=== PATIENT | male | born 1950 | race Caucasian/White ===

== ENCOUNTER 2020-09-13 08:56 | Emergency (ER) | payer MEDICARE, BC ==
[~2020-09-13] VITALS: Ht 170.2 cm; Wt 93.2 kg
[~2020-09-13 08:56] MED LIST: ADVIL 200MG TA200 MG PO; ATIVAN 0.50.5 MG/TAB PO; ATORVASTATIN PO; CRESTOR PO; CRESTOR20 MG PO; CYMBALTA30 MG PO; FORTAMET500 MG PO; GLUCOPHAGE1000 MG PO; LISINOPRIL5 MG PO; MELATONIN1 M1 PO; PERCOCET 325 MG1 TA2 PO; PROZAC40 MG PO; TYLENOL PM EXTR1 TA1 PO; TYLENOL PM PO; ULTRAM 50MG TAB50 MG PO; ULTRAM50 MG PO; ZITHROMAX Z PA250 MG PO
[2020-09-13 09:48] LABS: BASO % 0.2 % (0.0-2.0); GRAN # 6.8 (1.4-6.5); GRAN % 80.7 % (42.2-75.2); HEMATOCRIT 41.8 % (42.0-52.0); HEMOGLOBIN 14.7 g/dl (13.5-18.0); LYMPH # 0.9 (1.2-3.4); MEAN CELL VOLUME 85 fl (80.0-100.0); MEAN CORPUSCULAR HEMOGLOBIN 30 pg (27.0-31.0); MEAN CORPUSCULAR HGB CONC 35 g/dl (33.0-37.0); MEAN PLATELET VOLUME 10.2 fl (7.4-10.4); MONO # 0.6 (0.1-0.6); MONO % 7.5 % (1.7-9.3); PLATELET COUNT 176 K/mm3 (130-400); RED BLOOD COUNT 4.94 M/mm3 (4.20-5.60)
[2020-09-13 10:59] LABS: ALANINE AMINOTRANSFERASE 53 U/L (4-49); ALBUMIN 3.8 gm/dL (3.5-5.0); ALKALINE PHOSPHATASE 68 U/L (50-136); ANION GAP 11 mmol/L (7-16); AST,SGOT 84 U/L (15-37); BILIRUBIN,TOTAL 0.6 mg/dL (0.0-1.0); BLOOD UREA NITROGEN 24 mg/dL (9-20); CALCIUM 8.8 mg/dL (8.4-10.2); CARBON DIOXIDE 22 mmol/L (22-30); CHLORIDE 96 mmol/L (98-107); CREATININE, serum 1.05 (0.66-1.25); GLUCOSE 232 mg/dL (74-106); SODIUM 130 mmol/L (137-145); TOTAL PROTEIN 7.5 gm/dL (6.4-8.2)
[2020-09-13 11:10] LABS: C-REACTIVE PROTEIN 14.7 mg/dL (0.0-0.9); TROPONIN-I < 0.012 ng/mL (0.000-0.035)
[2020-09-13 11:35] VITALS: BP 117/58; PULSE 65; TEMP 97.4
[2020-09-13] MEDS ORDERED: REGLAN 5MG T5 MG/TAB PO (12:09)
== END 2020-09-13 11:40 | disposition home or self-care (01) ==
LOC: COL.ER 08:56
PROVIDERS: Emergency Medicine
DX: U07.1 COVID-19 (principal); E87.1 Hypo-osmolality and hyponatremia; Z79.84 Long term (current) use of oral hypoglycemic drugs
CPT/HCPCS: J1885; J7030

== ENCOUNTER 2020-09-24 12:57 | Observation (INO) | payer MEDICARE, BC ==
[~2020-09-24] VITALS: Wt 65.7 kg
[~2020-09-24 12:57] MED LIST changes: +REGLAN 5MG T5 MG/TAB PO
[2020-09-24 14:17] LABS: BASO # 0.1 (0.0-0.2); BASO % 0.4 % (0.0-2.0); EOS % 0.2 % (0-4.0); GRAN # 8.9 (1.4-6.5); GRAN % 75.3 % (42.2-75.2); HEMATOCRIT 47.6 % (42.0-52.0); HEMOGLOBIN 15.9 g/dl (13.5-18.0); LYMPH # 1.5 (1.2-3.4); LYMPH % 12.7 % (20.0-51.0); MEAN CELL VOLUME 89 fl (80.0-100.0); MEAN CORPUSCULAR HEMOGLOBIN 30 pg (27.0-31.0); MEAN CORPUSCULAR HGB CONC 33 g/dl (33.0-37.0); MONO # 1.3 (0.1-0.6); MONO % 10.6 % (1.7-9.3); PLATELET COUNT 442 K/mm3 (130-400); RED BLOOD COUNT 5.37 M/mm3 (4.20-5.60)
[2020-09-24 14:34] LABS: ALANINE AMINOTRANSFERASE 74 U/L (4-49); ALBUMIN 4.2 gm/dL (3.5-5.0); ALKALINE PHOSPHATASE 102 U/L (50-136); ANION GAP 13 mmol/L (7-16); AST,SGOT 51 U/L (15-37); BILIRUBIN,TOTAL 0.8 mg/dL (0.0-1.0); BLOOD UREA NITROGEN 44 mg/dL (9-20); CALCIUM 9.9 mg/dL (8.4-10.2); CARBON DIOXIDE 23 mmol/L (22-30); CHLORIDE 101 mmol/L (98-107); CREATININE, serum 1.35 (0.66-1.25); GLUCOSE 336 mg/dL (74-106); POTASSIUM 4.5 mmol/L (3.4-5.0); SODIUM 136 mmol/L (137-145); TOTAL PROTEIN 8.6 gm/dL (6.4-8.2)
[2020-09-24 14:40] LABS: TROPONIN-I < 0.012 ng/mL (0.000-0.035)
[2020-09-24 15:23] LABS: COLLECTION METHOD CLEAN CATCH
[2020-09-24 15:34] LABS: MUCOUS Present /lpf; PH 5 (5-8); SQUAMOUS EPITHELIAL 0-2 /hpf; URINE APPEARANCE Clear; URINE BACTERIA None Seen /hpf; URINE BILIRUBIN Negative (NEGATIVE); URINE BLOOD 1+ (NEGATIVE); URINE COLOR Yellow; URINE GLUCOSE 3+ (NEGATIVE); URINE KETONE Trace (NEGATIVE); URINE LEUKOCYTE ESTERASE Negative (NEGATIVE); URINE NITRATE Negative (NEGATIVE); URINE PROTEIN(semi-quant) 2+ (NEGATIVE); URINE RBC 0-2 /hpf; URINE UROBILINOGEN Negative (NEGATIVE)
[2020-09-24] MEDS ORDERED: PROZAC40 MG PO (17:28)
[2020-09-24 20:39] VITALS: BP 151/80; PULSE 130; TEMP 98.3
[2020-09-25 00:42] VITALS: BP 109/86; PULSE 104; TEMP 98.1
[2020-09-25 04:14] VITALS: BP 120/60; PULSE 61; TEMP 97.6
--- NOTE | 2020-09-25 06:28 | NUR ---
spoke to and got information r/t mri today. she relates he has not been dx with parkinsons, trmors are new onset.
--- NOTE | 2020-09-25 06:36 | NUR ---
THIS PT HAD A DIFFICULT START TO THE NIGHT. HE WAS VERY CONFUSED, PT STILL DID NOT UNDERSTAND WHERE HE WAS AT. HE HAS HAD SEVERAL BOUTS OF INCONTINENCE, BUT STILL THINKS HE NEEDS TO USE THE BATHROOM. THIS PATIENT WILL REQUIRE A LOT OF ATTENTION. BED ALARM IS ON, FALL PRECAUTIONS IN PLACE. PT IS SUPPOSED TO HAVE A BRAIN MRI TODAY, BUT MAY NEED TO CONSIDER SEDATION FOR THIS. WILL ENDORSE TO DAY SHIFT RN.
[2020-09-25 06:53] LABS: BASO % 0.4 % (0.0-2.0); EOS % 0.3 % (0-4.0); GRAN % 69.6 % (42.2-75.2); HEMATOCRIT 44.3 % (42.0-52.0); HEMOGLOBIN 14.7 g/dl (13.5-18.0); LYMPH # 1.9 (1.2-3.4); LYMPH % 19.2 % (20.0-51.0); MEAN CELL VOLUME 90 fl (80.0-100.0); MEAN CORPUSCULAR HEMOGLOBIN 30 pg (27.0-31.0); MEAN CORPUSCULAR HGB CONC 33 g/dl (33.0-37.0); MEAN PLATELET VOLUME 9.7 fl (7.4-10.4); RED BLOOD COUNT 4.94 M/mm3 (4.20-5.60); REDCELL DISTRIBUTION WIDTH-CV 12.1 % (11.5-14.5)
[2020-09-25 07:07] LABS: ALANINE AMINOTRANSFERASE 59 U/L (4-49); ALBUMIN 3.8 gm/dL (3.5-5.0); ALKALINE PHOSPHATASE 86 U/L (50-136); ANION GAP 10 mmol/L (7-16); AST,SGOT 46 U/L (15-37); BILIRUBIN,TOTAL 0.9 mg/dL (0.0-1.0); BLOOD UREA NITROGEN 42 mg/dL (9-20); CALCIUM 9.3 mg/dL (8.4-10.2); CARBON DIOXIDE 26 mmol/L (22-30); CHLORIDE 100 mmol/L (98-107); CREATININE, serum 1.17 (0.66-1.25); GLUCOSE 208 mg/dL (74-106); POTASSIUM 4.1 mmol/L (3.4-5.0); SODIUM 136 mmol/L (137-145); TOTAL PROTEIN 7.8 gm/dL (6.4-8.2)
[2020-09-25 07:08] LABS: PLATELET COUNT 336 K/mm3 (130-400)
[2020-09-25 07:19] LABS: TROPONIN-I < 0.012 ng/mL (0.000-0.035)
--- NOTE | 2020-09-25 07:29 | NUR ---
Pt assessment complete. Pt is assisted to the BSC with 1 assist. Pt is oriented to person and date just unsure where he is. Pt asking if we know what is the matter with him. Denies any pain. IV to RAC leaking, fluids disconnected. Will attempt new IV. No needs at this time. Call light and bed alarm in place.
[2020-09-25 08:01] VITALS: BP 140/69; PULSE 79; TEMP 97.8
--- NOTE | 2020-09-25 09:37 | NUR ---
Maryse called for update,
[2020-09-25 12:14] VITALS: BP 126/61; PULSE 84; TEMP 97.3
--- NOTE | 2020-09-25 15:11 | NUR ---
SW met with the patient to discuss discharge plan. The patient lives in [place] with his , Maryse (ph#[phone]), and family members. He states that there are ten of them in the home. He reports independence with ADLs and does not have any DME. The patient's PCP is Dr. Iwona Solis and he receives his medications from [facility]. He reports no difficulties obtaining his meds. The patient does not have a DPOA-HC in EMR, but he states that he thinks he has one completed and that his is his DPOA-HC. The patient plans to return home with his family upon discharge. PT/OT have been ordered. SW attempted to contact the patient's , Maryse, to review d/c plan. SW left her a voicemail. SW to continue to follow.
[2020-09-25 15:55] VITALS: BP 130/64; PULSE 76; TEMP 97.6
--- NOTE | 2020-09-25 18:34 | NUR ---
Pt was alert, oriented and pleasant this afternoon. Ambulated with SBA. No needs at this time. Bed alarm in place.
--- NOTE | 2020-09-25 20:30 | NUR ---
Initial shift assessment done- denies pain, is requesting tylenol to help relax him to help sleep-- will give as requested. Alert/oriented x4 at this time. IV fluids at 100cc/hr. Up to bathroom with assist- steady on feet.
[2020-09-25 20:45] VITALS: BP 126/61; PULSE 67; TEMP 98.3
[2020-09-26 00:47] VITALS: BP 132/64; PULSE 63; TEMP 97.5
[2020-09-26 04:09] VITALS: BP 136/75; PULSE 60; TEMP 97.5
--- NOTE | 2020-09-26 05:54 | NUR ---
Quiet night- pt states did not sleep much at all last night-- VSS, Up to bathroom, steady on feet-slighlty forgetful?-vague,, but knows hes in the hospital in [facility]-
--- NOTE | 2020-09-26 07:00 | NUR ---
Report with DAVEY Elizabeth. Pt resting in bed with eyes closed. IVF's infusing per orders without s/s of complications. Call light in reach. Bed alarm on.
[2020-09-26 08:21] VITALS: BP 136/67; PULSE 66; TEMP 98.1
[2020-09-26] MEDS ORDERED: GLUCOPHAGE1000 MG PO (10:51)
[2020-09-26 12:07] VITALS: BP 141/66; PULSE 74; TEMP 98
--- NOTE | 2020-09-26 13:46 | NUR ---
Pt discharged home with after reviewing discharge instructions. Questions invited and answered. Pt escorted out of facility via WC accompanied by PAINT STOCK CLERK.
--- NOTE | 2020-09-26 14:13 | NUR ---
PT/OT recommend home. ST notified SW that she would recommend outpatient ST and some supervision. SW contacted the patient's to review d/c plan. The patient's is comfortable with the patient returning back home and is agreeable to outpatient ST at [facility]. CISCO contacted Gabe at [facility]. Gabe reports that the schedulers are out for lunch right now and he will leave a message for them. CISCO faxed the patient's orders to [facility]. The patient then discharged back home. CISCO contacted [facility] and requested that they contact the patient's to schedule an appointment. CISCO attempted to contact the patient's to update. CISCO left her a voicemail.
== END 2020-09-26 13:47 | disposition home or self-care (01) ==
LOC: COL.ER 12:57 → MEDICAL 16:37
PROVIDERS: Emergency Medicine; Student in an Organized Health Care Education/Training Program; ADMIT Student in an Organized Health Care Education/Training Program
DX: G93.40 Encephalopathy, unspecified (principal); R25.1 Tremor, unspecified; R00.0 Tachycardia, unspecified; E86.0 Dehydration; E11.65 Type 2 diabetes mellitus with hyperglycemia; N17.9 Acute kidney failure, unspecified; I10 Essential (primary) hypertension; E78.5 Hyperlipidemia, unspecified; Z86.16 Personal history of COVID-19; G31.84 Mild cognitive impairment of uncertain or unknown etiology; F32.9 Major depressive disorder, single episode, unspecified; Z79.899 Other long term (current) drug therapy; Z79.84 Long term (current) use of oral hypoglycemic drugs; Z88.8 Allergy status to other drugs, medicaments and biological substances
CPT/HCPCS: 99232-AI; 99239; A9585; G0378; J1644; J1815; J7030

== ENCOUNTER → 2020-10-08 | Outpatient (CLI) | payer MEDICARE, BC | LOC: COL.LAB 12:36 → COL.RAD 12:48 → COL.LAB 12:48 | DX: I77.810 Thoracic aortic ectasia (principal); K76.0 Fatty (change of) liver, not elsewhere classified; N28.1 Cyst of kidney, acquired; R91.8 Other nonspecific abnormal finding of lung field | CPT/HCPCS: Q9967 ==

== ENCOUNTER → 2021-05-03 | Outpatient (CLI) | payer MEDICARE, BC | LOC: COL.RAD 12:01 | DX: G31.84 Mild cognitive impairment of uncertain or unknown etiology (principal) ==

== ENCOUNTER 2021-07-07 12:50 | Emergency (ER) | payer MEDICARE, BC ==
[~2021-07-07] VITALS: Ht 170.2 cm; Wt 95.5 kg
[2021-07-07 13:12] VITALS: TEMP 98.1
[2021-07-07 14:07] LABS: BASO # 0.1 K/mm3 (0.0-0.2); BASO % 0.6 % (0.0-2.0); EOS # 0.2 K/mm3 (0.0-0.7); EOS % 1.8 % (0-4.0); GRAN # 7.8 K/mm3 (1.4-6.5); GRAN % 68.1 % (42.2-75.2); HEMOGLOBIN 14.6 g/dl (13.5-18.0); LYMPH # 2.5 K/mm3 (1.2-3.4); LYMPH % 21.7 % (20.0-51.0); MEAN CELL VOLUME 85 fl (80.0-100.0); MEAN CORPUSCULAR HEMOGLOBIN 30 pg (27.0-31.0); MEAN CORPUSCULAR HGB CONC 35 g/dl (33.0-37.0); MEAN PLATELET VOLUME 10.6 fl (7.4-10.4); MONO # 0.9 K/mm3 (0.1-0.6); MONO % 7.4 % (1.7-9.3); PLATELET COUNT 240 K/mm3 (130-400); RED BLOOD COUNT 4.93 M/mm3 (4.20-5.60); REDCELL DISTRIBUTION WIDTH-CV 12.6 % (11.5-14.5)
[2021-07-07 14:25] LABS: ALANINE AMINOTRANSFERASE 41 U/L (0-55); ALBUMIN 3.8 gm/dL (3.4-4.8); ALKALINE PHOSPHATASE 85 U/L (40-150); ANION GAP 13 mmol/L (7-16); AST,SGOT 45 U/L (5-34); BILIRUBIN,TOTAL 0.3 mg/dL (0.2-1.2); BLOOD UREA NITROGEN 25 mg/dL (8-26); CALCIUM 9.6 mg/dL (8.4-10.2); CARBON DIOXIDE 18 mmol/L (23-31); CHLORIDE 103 mmol/L (98-107); CREATININE, serum 1.48 mg/dL (0.72-1.25); GLUCOSE 337 mg/dL (70-99); POTASSIUM 4.6 mmol/L (3.5-4.5); SODIUM 134 mmol/L (136-145); TOTAL PROTEIN 7.9 gm/dL (6.2-8.1)
[2021-07-07 14:33] LABS: TROPONIN-I < 0.010 ng/mL (0.00-0.033)
[2021-07-07 16:24] VITALS: BP 109/69; PULSE 82
== END 2021-07-07 16:24 | disposition home or self-care (01) ==
LOC: COL.ER 12:50
PROVIDERS: Physician Assistant
DX: R06.6 Hiccough (principal); I10 Essential (primary) hypertension; E78.5 Hyperlipidemia, unspecified; E11.9 Type 2 diabetes mellitus without complications; Z79.84 Long term (current) use of oral hypoglycemic drugs; Z79.899 Other long term (current) drug therapy
CPT/HCPCS: C9113

== ENCOUNTER 2023-06-25 17:07 | Emergency (ER) | payer MEDICARE, BC ==
[~2023-06-25] VITALS: Ht 170.2 cm; Wt 90.9 kg
[2023-06-25 17:21] VITALS: TEMP 97.7
[2023-06-25] MEDS ORDERED: ULTRAM 50MG TAB50 MG PO (19:02)
[2023-06-25 19:26] VITALS: BP 114/56; PULSE 61
== END 2023-06-25 19:26 | disposition home or self-care (01) ==
LOC: COL.ER 17:07
DX: S70.01XA Contusion of right hip, initial encounter (principal); W01.0XXA Fall on same level from slipping, tripping and stumbling without subsequent striking against object, initial encounter; Y92.009 Unspecified place in unspecified non-institutional (private) residence as the place of occurrence of the external cause; Y99.0 Civilian activity done for income or pay